=== PATIENT | male | born 1990 | race Caucasian/White ===

== ENCOUNTER 2017-12-26 22:44 | Inpatient (IN) | payer MEDICAID, OTHER ==
[2017-12-26 23:15] VITALS: BMI 17.3
--- NOTE | 2017-12-27 00:04 | C.PDOC ---
History Of Present Illness 27 year old male presents to the ER stating he feels depressed and has been having suicidal thoughts. Patient admits to using heroin and cocaine chronically. Patient states he took "extra" heroin yesterday in an attempt to overdose, which is how he plans on committing suicide. Denies physical complaints at this time. Time Seen by Provider: 12/26/17 23:18 Chief Complaint (Nursing): Psychiatric Evaluation History Per: Patient History/Exam Limitations: no limitations Onset/Duration Of Symptoms: Days Current Symptoms Are (Timing): Still Present Suicide/Self Injury Attempted (Context): None Modifying Factor(s): Narcotics Associated Symptoms: Depression, Suicidal Thoughts, Suicidal Plan Involuntary Hold By: None Recent travel outside of the [place]: No Past Medical History Reviewed: Historical Data, Nursing Documentation, Vital Signs Vital Signs: Last Vital Signs Temp 98.2 F 12/27/17 06:00 Pulse 64 12/27/17 06:00 Resp 14 12/27/17 06:00 BP 109/60 12/27/17 06:00 Pulse Ox 97 12/27/17 06:00 - Medical History PMH: Anemia, Anxiety, Depression Family History: States: Unknown Family Hx - Social History Hx Alcohol Use: No Hx Substance Use: Yes - Immunization History Hx Tetanus Toxoid Vaccination: Yes (2018) Hx Influenza Vaccination: No Hx Pneumococcal Vaccination: No Review Of Systems Except As Marked, All Systems Reviewed And Found Negative. Psych: Positive for: Depression, Suicidal ideation Physical Exam - Physical Exam Appears: Non-toxic, Other (Flat affect) Skin: Normal Color, Warm, Dry Head: Atraumatic, Normacephalic Eye(s): bilateral: Normal Inspection Oral Mucosa: Moist Chest: Symmetrical, No Tenderness Cardiovascular: Rhythm Regular Respiratory: Normal Breath Sounds, No Rales, No Rhonchi, No Wheezing Gastrointestinal/Abdominal: Soft, No Tenderness Neurological/Psych: Oriented x3, Normal Speech ED Course And Treatment - Laboratory Results Result Diagrams: 12/27/17 00:32 12/27/17 00:32 O2 Sat by Pulse Oximetry: 97 (Room air) Pulse Ox Interpretation: Normal Progress Note: Blood work, UA, UDS ordered and reviewed. 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 Disposition - Disposition Disposition Time: 07:00 Condition: STABLE Forms: [facility] (Sudanese) Print Language: FRENCH - Clinical Impression Clinical Impression: Depression - Scribe Statement The provider has reviewed the documentation as recorded by the Scribe Chandler Huynh All medical record entries made by the Scribe were at my direction and personally dictated by me. I have reviewed the chart and agree that the record accurately reflects my personal performance of the history, physical exam, medical decision making, and the department course for this patient. I have also personally directed, reviewed, and agree with the discharge instructions and disposition. Physician Patient Turnover Patient Signed Over To: Lorraine Whaley Handoff Comments: pending psych bed
[2017-12-27 00:39] LABS: BASO % 0.4 % (0.0-2.0); EOS # 0.2 K/uL (0.0-0.7); EOS % 2.5 % (0.0-4.0); HEMOGLOBIN 12.6 g/dL (12.0-18.0); LYMPH # 2.4 K/uL (1.0-4.3); MEAN CELL VOLUME 81.1 fL (80.0-94.0); MEAN CORPUSCULAR HEMOGLOBIN 27.6 pg (27.0-31.0); MEAN CORPUSCULAR HGB CONC 34.1 g/dL (33.0-37.0); MEAN PLATELET VOLUME 8.9 fL (7.2-11.7); MONO # 0.6 K/uL (0.0-0.8); MONO % 7.1 % (0.0-10.0); NEUT # 5.6 K/uL (1.8-7.0); RBC 4.55 Mil/uL (4.40-5.90); RED CELL DISTRIBUTION WIDTH 14.3 % (11.5-14.5); WHITE BLOOD COUNT 8.8 K/uL (4.8-10.8)
[2017-12-27 00:43] LABS: URINE BILIRUBIN NEGATIVE (NEGATIVE); URINE BLOOD NEGATIVE (NEGATIVE); URINE CLARITY Clear (Clear); URINE COLOR Yellow (YELLOW); URINE GLUCOSE (UA) NORMAL (Normal); URINE LEUKOCYTE ESTERASE NEG Leu/uL (Negative); URINE PROTEIN 1+ mg/dL (NEGATIVE)
[2017-12-27 01:00] LABS: ALBUMIN 3.9 g/dL (3.5-5.0); ALT/SGPT 19 U/L (21-72); AST/SGOT 30 U/L (17-59); BLOOD UREA NITROGEN 16 mg/dL (9-20); CALCIUM 8.4 mg/dl (8.6-10.4); GFR AFRICAN-AMERICAN > 60; GFR NON-AFRICAN AMERICAN > 60
[2017-12-27 01:10] LABS: BARBITURATES, UR NEGATIVE (NEGATIVE); BENZODIAZEPINES, UR NEGATIVE (NEGATIVE); PHENCYCLIDINE, UR NEGATIVE (NEGATIVE)
[2017-12-27 01:33] LABS: OPIATES, UR POSITIVE (NEGATIVE)
[2017-12-27] MEDS ORDERED: Aluminum Hydroxide/Magnesium Hydroxide Susp (30 mL) PO PRN (11:26)
--- NOTE | 2017-12-27 11:57 | PCM.BM ---
<Giulia Jorgensen - Last Filed: 12/27/17 11:55> Treatment Plan Problems - Problems identified on initial assessmt Depression Date Initiated: 12/27/17 Time Initiated: 11:56 Assessment reference: NA Status: Active Suicidal Ideation Date Initiated: 12/27/17 Time Initiated: 11:56 Assessment reference: NA Status: Monitor Treatment assets and liabiliti Patient Assests: adapts well, cooperative - Milieu Protocol Maintain good personal hygiene: daily Encourage regular showers, every shift Remind patient to perform daily oral care, every shift Assist patient to perform ADL's Maintain personal safety: every shift Educate patient to report safety concerns to staff, every shift Monitor environment for contraband/sharps Medication safety: Monitor for expected outcome, potential side effects: every shift, Assess barriers to learning: every shift, Assess readiness for medication education: every shift <Km Nova - Last Filed: 12/27/17 13:26> - Diagnosis (1) Opioid use disorder, severe, dependence Status: Acute Interventions: 12/27/17 13:27 * Assess 7x/week regarding severity of withdrawal * Educate regarding risks, benefits, side effects and alternatives of medications * Use Motivational Interviewing for abstinence * Use CBT for relapse prevention * Medication management for withdrawal symptoms * Encourage medication assisted treatment * (2) Depression Status: Acute Interventions: 12/27/17 13:27 * Assess/adjust medications daily and /or as needed * See patient on an individual basis 7x/week to assess symptoms of depression * Monitor for side effects & effectiveness of medications * <Maria Del Carmen Feliciano - Last Filed: 12/30/17 14:23> Family Contact Family involvement: Patient does not wish Family/SO involvement Family contact: Patient declines to allow family contact at present - Goals for Treatment Patient goals for treatment: "I want to attend a methadone clinic." Discharge/Continuing Care - Education Needs Education Needs: Patient Medication, Patient Coping Skills, Patient Anger Management skills, Patient Aftercare Safety Plan - Discharge Discharge Criteria: Free of Suicidal thoughts, Normal sleep pattern, Ability to care for self, No longer exhibiting s/s of withdrawal, Reduction of target symptoms Discharge to:: With Family - Treatment Team Participation Discussed with Family/SO: No Was Patient/Family/SO present at Treatment Team Meeting: Yes
--- NOTE | 2017-12-27 11:58 | PCM.PSYCH ---
Initial Psychiatric Evaluation - Initial Psychiatric Evaluation Type of Admission: Voluntary Legal Status: Capacity Chief Complaint (in patient's own words): "I was depressed" History of Present Illness and Precipitating Events: The patient is seen, chart reviewed and case discussed. This is a 27-year-old male, single with a girlfriend who is 7 months . The patient lives with his parents in [place]. He is unemployed and sometimes does shoplifting for which she was arrested earlier this year. He reports depressive symptoms; anhedonia, sadness, guilt feelings, poor sleep and appetite as well as low self esteem. He thought about overdosing on heroin but he denies all suicidal ideation or plan currently and he is happy to be here. He is future oriented and contracts for safety. He plans to go there rehabilitation and reunite with his girlfriend who is "supportive" as well as his family.. He does 20 bags of IV heroin since age 21 and also cocaine IV but not every day. Last use was yesterday PM. He smokes 1 pack of cigarettes and occasionally marijuana. He denies all other drugs and alcohol. He was in detox 3 times but never went to rehabilitation. He was in methadone program in [facility] in 2017 and his dose was 100 mg. However, after he was jailed for a month he lost his spot in the methadone program. Past psych history: One aurelia attempt in 2012 by OD on heroin. No psych admission or treatment, however he claims he has been depresed sicne he started drugs. Medical history: Hepatitis C and past history of anemia. He is currently okay Family psych history: Father was an alcoholic. Current Medications: Active Medications Generic Name Dose Route Start Last Admin Trade Name Freq PRN Reason Stop Dose Admin Al Hydrox/Mg Hydrox/Simethicone 30 ml 12/27/17 11:26 Maalox 30 Ml PO TID PRN Indigestion / Heartburn Clonidine HCl 0.1 mg 12/27/17 11:26 Catapres PO Q8 PRN COWS Score More or Equal to 5 Hydroxyzine HCl 50 mg 12/27/17 11:27 Atarax PO Q6H PRN Anxiety Ibuprofen 600 mg 12/27/17 11:27 Motrin Tab PO Q6H PRN Pain, moderate (4-7) Loperamide HCl 2 mg 12/27/17 11:26 Imodium PO Q8 PRN Diarrhea Mirtazapine 15 mg 12/27/17 22:00 Remeron PO HS KRISS Ondansetron HCl 4 mg 12/27/17 11:26 Zofran Tab PO Q8 PRN Nausea/Vomiting Trazodone HCl 50 mg 12/27/17 11:27 Desyrel PO HS PRN Insomnia Past Psychiatric History - Past Psychiatric History Previous Treatment History: None Pertinent Medical Hx (Current Medical&Sleep Prob, Allergies): Allergies Allergy/AdvReac Type Severity Reaction Status Date / Time No Known Allergies Allergy Unverified 12/26/17 23:13 Review of Systems - Neurological Neurological: Other - Psychiatric Psychiatric: Abnormal Sleep Pattern, Anhedonia, Anxiety, Depression, Difficulty Concentrating. absent: Hallucinations, Homicidal Ideation, Mood Swings, Suicidal Ideation Mental Status Examination - Personal Presentation Personal Presentation: Looks stated age (thin and tall) - Affect Affect: Constricted - Motor Activity Motor Activity: Calm - Reliability in Providing Information Reliability in Providing Information: Good - Speech Speech: Organized - Mood Mood: Depressed, Anxious - Formal Thought Process Formal Thought Process: No Impairment - Cognitive Functions Orientation: Person, Place, Situation, Time Sensorium: Alert Attention/Concentration: Attentive Estimate of Intelligence: Average Judgement: Intact, as evidence by: Insight regarding need for hospitalization Memory: Recent intact, as evidence by: Ability to recall events of the day, Remote intact, as evidenced by: Abilit to recall sig. life events - Risk Risk: Withdrawal, Diminished functioning - Strength & Assets Inventory Strength & Assets Inventory: Cooperative - Limitations Limitations: Living alone DSM 5 DX - DSM 5 DSM 5 Diagnosis: Depressive d/o -unspecified Opioid withdrawal opioid use d/o- severe Cocaine use d/o -sever Tobacco use d/o - severe - Recommended/Plan of Treatment Treatment Recommendations and Plan of Treatment: Remeron for depression Taper with methadone Gabapentin for augmentation if needed As needed medications All risks, benefits and alternatives of the meds discussed, and the pt agreed and understood. Attend groups and activities Supportive therapy and psychoeducation [place] for abstinence CBT for relapse prevention Encourage MAT Refer to rehab or IOP, and self-help groups Smoking cessation with [place] Nicotine patch 34 min Projected ELOS: 5-6 days Prognosis: good w treatment Discharge Plan and Discharge Criteria: Rehab No wdw sxs, no severe depressive sxs - Smoking Cessation Smoking Cessation Initiated: Yes
[2017-12-27] MEDS: Bacitracin 500 Units/gm Oint Foilpak UD TOP PRN (17:53)
--- NOTE | 2017-12-28 13:04 | PCM.PYCHPN ---
Psychiatric Progress Note - Psychiatric Progress Note Patient seen today, length of contact: 16 min Patient Chief Complaint: I am feeling depressed.' Problems Identified/Issues Discussed: Patient seen and evaluated, chart reviewed and discussed with the nurse. As per the staff, patient still appears isolated, depressed and withdrawn. Patient still reports depressed mood and reports at times feelings of hopelessness or helplessness. He reports withdrawal symptoms including cramps, back pain and sweating. He denies any auditory or visual hallucinations or any psychotic symptoms. He needs some more time for stabilization. He is compliant with his medications and denies any side effects. Supportive therapy and psychoeducation were given. Medication Change: Yes Medical Record Reviewed: Yes Mental Status Examination - Cognitive Function Orientation: Person, Place, Situation, Time Memory: Intact Attention: WNL Concentration: Poor Association: WNL Fund of Knowledge: Poor - Mood Mood: Depressed, Anxious - Affect Affect: Constricted - Speech Speech: Soft - Formal Thought Process Formal Thought Process: No Impairment - Suicidal Ideation Suicidal Ideation: No - Homicidal Ideation Homicidal Ideation: No Goal/Treatment Plan - Goal/Treatment Plan Need for Continued Stay: Severe depression anxiety, Severe functional impairment Progress Toward Problem(s) and Goals/Treatment Plan: Depressive d/o -unspecified Opioid withdrawal opioid use d/o- severe Cocaine use d/o -sever Tobacco use d/o - severe Remeron for depression Taper with methadone Gabapentin for augmentation if needed As needed medications All risks, benefits and alternatives of the meds discussed, and the pt agreed and understood. Attend groups and activities Supportive therapy and psychoeducation [place] for abstinence CBT for relapse prevention Encourage MAT Refer to rehab or IOP, and self-help groups Smoking cessation with [place] Nicotine patch - Smoking Cessation Smoking Cessation Initiated: No
--- NOTE | 2017-12-29 10:50 | PCM.PYCHPN ---
Psychiatric Progress Note - Psychiatric Progress Note Patient seen today, length of contact: 16 min Patient Chief Complaint: I am feeling depressed.' Problems Identified/Issues Discussed: Patient seen and evaluated, chart reviewed and discussed with the nurse. Patient still reports depressed mood and reports at times feelings of hopelessness or helplessness. He reports withdrawal symptoms including cramps, back pain and sweating. He denies any auditory or visual hallucinations or any psychotic symptoms. As per the staff, patient still appears isolated, depressed and withdrawn. He needs some more time for stabilization. He is compliant with his medications and denies any side effects. Supportive therapy and psychoeducation were given. Medication Change: Yes (methadone taper) Medical Record Reviewed: Yes Mental Status Examination - Cognitive Function Orientation: Person, Place, Situation, Time Memory: Intact Attention: WNL Concentration: Poor Association: WNL Fund of Knowledge: Poor - Mood Mood: Depressed, Anxious - Affect Affect: Constricted - Speech Speech: Soft - Formal Thought Process Formal Thought Process: No Impairment - Suicidal Ideation Suicidal Ideation: No - Homicidal Ideation Homicidal Ideation: No Goal/Treatment Plan - Goal/Treatment Plan Need for Continued Stay: Severe depression anxiety, Severe functional impairment Progress Toward Problem(s) and Goals/Treatment Plan: Depressive d/o -unspecified Opioid withdrawal opioid use d/o- severe Cocaine use d/o -sever Tobacco use d/o - severe Remeron for depression Taper with methadone Gabapentin for augmentation if needed As needed medications All risks, benefits and alternatives of the meds discussed, and the pt agreed and understood. Attend groups and activities Supportive therapy and psychoeducation [place] for abstinence CBT for relapse prevention Encourage MAT Refer to rehab or IOP, and self-help groups Smoking cessation with [place] Nicotine patch
[2017-12-30 06:59] VITALS: O2SAT 98
[2017-12-30] MEDS: Bacitracin 500 Units/gm Oint Foilpak UD TOP PRN (09:03)
[2017-12-30] MEDS ORDERED: Pneumococcal 23-Valent Vaccine IM ONE (10:00)
--- NOTE | 2017-12-30 14:09 | PCM.PYCHPN ---
Psychiatric Progress Note - Psychiatric Progress Note Patient seen today, length of contact: 16 min Patient Chief Complaint: "I feel better" Problems Identified/Issues Discussed: The pt is seen, chart reviewed, case discussed with staff. Patient states he slept okay and is doing okay. Symptoms are improving but needs more time to stabilize. After care discussed, support and psychoeducation given. Medication Change: Yes (methadone taper) Medical Record Reviewed: Yes Mental Status Examination - Cognitive Function Orientation: Person, Place, Situation, Time Memory: Intact Attention: WNL Concentration: Poor Association: WNL Fund of Knowledge: Poor - Mood Mood: Depressed - Affect Affect: Constricted - Speech Speech: Soft - Formal Thought Process Formal Thought Process: No Impairment - Suicidal Ideation Suicidal Ideation: No - Homicidal Ideation Homicidal Ideation: No Goal/Treatment Plan - Goal/Treatment Plan Need for Continued Stay: Severe depression anxiety, Severe functional impairment Progress Toward Problem(s) and Goals/Treatment Plan: Continue Remeron 15mg for depression Taper with methadone Gabapentin for augmentation if needed As needed medications All risks, benefits and alternatives of the meds discussed, and the pt agreed and understood. Attend groups and activities Supportive therapy and psychoeducation [place] for abstinence CBT for relapse prevention Encourage MAT Refer to rehab or IOP, and self-help groups Smoking cessation with [place] Nicotine patch
--- NOTE | 2017-12-31 14:42 | PCM.PYCHPN ---
Psychiatric Progress Note - Psychiatric Progress Note Patient seen today, length of contact: 16 min Patient Chief Complaint: "I am doing better." Problems Identified/Issues Discussed: The pt is seen, chart reviewed, case discussed with staff. Patient states he is doing okay. He states he slept well. Symptoms are improving but needs more time to stabilize. After care discussed, support and psychoeducation given. Medication Change: Yes (methadone taper) Medical Record Reviewed: Yes Mental Status Examination - Cognitive Function Orientation: Person, Place, Situation, Time Memory: Intact Attention: WNL Concentration: Poor Association: WNL Fund of Knowledge: Poor - Mood Mood: Neutral - Affect Affect: Constricted - Speech Speech: Soft - Formal Thought Process Formal Thought Process: No Impairment - Suicidal Ideation Suicidal Ideation: No - Homicidal Ideation Homicidal Ideation: No Goal/Treatment Plan - Goal/Treatment Plan Need for Continued Stay: Severe depression anxiety, Severe functional impairment Progress Toward Problem(s) and Goals/Treatment Plan: Continue Remeron 15mg for depression Continue Taper with methadone Gabapentin for augmentation if needed As needed medications All risks, benefits and alternatives of the meds discussed, and the pt agreed and understood. Attend groups and activities Supportive therapy and psychoeducation [place] for abstinence CBT for relapse prevention Encourage MAT Refer to rehab or IOP, and self-help groups Smoking cessation with [place] Nicotine patch
[2018-01-01 05:55] VITALS: BP 111/61; PULSE 67; RESP 19; TEMP 98.1
--- NOTE | 2018-01-01 09:58 | PCM.PYCHDC ---
Mental Status Examination - Mental Status Examination Orientation: Person Memory: Intact Mood: Neutral Affect: Broad Speech: Appropriate Attention: WNL Concentration: WNL Association: WNL Fund of Knowledge: WNL Formal Thought Process: No Impairment Suicidal Ideation: No Current Homicidal Ideation?: No Discharge Summary - Discharge Note Reason for Hospitalization: Depression and opioid use disorder detox Consultations:: List each consultation separately and include: 1. Reason for request. 2. Findings. 3. Follow-up Summary of Hospital Course include:: 1. Description of specific treatment plan utilized for patients during their course of treatmen. 2. Summarize the time- course for resolution of acute symptoms and/or regressed behaviors. 3. Describe issues identified and worked on during hospitalization. 4. Describe medication utilized. 5. Describe medical problems identified and treated. 6. Reassessment of suicide risk Summary of Hospital Course: Admission Summary: The patient is seen, chart reviewed and case discussed. This is a 27-year-old male, single with a girlfriend who is 7 months . The patient lives with his parents in [place]. He is unemployed and sometimes does shoplifting for which she was arrested earlier this year. He reports depressive symptoms; anhedonia, sadness, guilt feelings, poor sleep and appetite as well as low self esteem. He thought about overdosing on heroin but he denies all suicidal ideation or plan currently and he is happy to be here. He is future oriented and contracts for safety. He plans to go there rehabilitation and reunite with his girlfriend who is "supportive" as well as his family.. He does 20 bags of IV heroin since age 21 and also cocaine IV but not every day. Last use was yesterday PM. He smokes 1 pack of cigarettes and occasionally marijuana. He denies all other drugs and alcohol. He was in detox 3 times but never went to rehabilitation. He was in methadone program in [facility] in 2017 and his dose was 100 mg. However, after he was jailed for a month he lost his spot in the methadone program. Past psych history: One aurelia attempt in 2012 by OD on heroin. No psych admission or treatment, however he claims he has been depresed sicne he started drugs. Medical history: Hepatitis C and past history of anemia. He is currently okay Family psych history: Father was an alcoholic. Hospital course: The pt was admitted and started on treatment with psychotherapy, support, psychoeducation and medications, including Methadone taper, Neurontin 100mg TID , Clonidien 0.1mg Q8 PRN, Atarax 50mg Q6 PRN, Remeron 15mg HS, and Trazodone 50mg HS PRN. [place] and CBT used. The pt attended groups and activities, as well as milieu therapy. All the risks and benefits of medications are discussed and the patient understood and agreed. The pt improved with the treatments provided. After care discussed with the patient. He will go to [facility] - Diagnosis (1) Opioid use disorder, severe, dependence Status: Acute (2) Depression Status: Acute - Final Diagnosis (DSM 5) Condition upon Discharge: GOOD DSM 5: Depressive disorder, unspecified Opioid withdrawal Opioid Use Disorder, severe Cocaine Use Disorder, severe Tobacco Use Disorder, severe Disposition: HOME/ ROUTINE Follow-up Treatment Plan: Continue below medications after discharge. Follow after care plan as discussed. Use relapse prevention skills Return to ER or call 911 if suicidal, homicidal or symptoms relapse. Stay away from stress, alcohol and drugs. See primary doctor regularly and get labs. Prescriptions/Medication Reconciliation: Gabapentin [Neurontin] 100 mg PO TID #90 cap Mirtazapine [Remeron] 15 mg PO HS #30 tab
== END 2018-01-01 11:20 | disposition home or self-care (01) | DRG 897 ==
LOC: C.ER 22:44 → C.9E 12-27 09:10 → C.5E 12-27 11:06
PROVIDERS: ADMIT Psychiatry & Neurology Psychiatry; ATTEND Psychiatry & Neurology Psychiatry
PROC: HZ2ZZZZ Detoxification Services for Substance Abuse Treatment (ICD-10-PCS; principal; 2017-12-27)
DX: F11.23 Opioid dependence with withdrawal (principal); R45.851 Suicidal ideations; Z68.1 Body mass index [BMI] 19.9 or less, adult; F12.90 Cannabis use, unspecified, uncomplicated; F17.210 Nicotine dependence, cigarettes, uncomplicated; F32.9 Major depressive disorder, single episode, unspecified; F14.10 Cocaine abuse, uncomplicated

== ENCOUNTER 2018-06-30 20:45 | Emergency (ER) | payer MEDICAID ==
[2018-06-30 20:46] VITALS: BMI 17.3
[2018-06-30 23:13] LABS: BASO % 0.5 % (0.0-2.0); EOS # 0.2 K/uL (0.0-0.7); EOS % 2.2 % (0.0-4.0); HEMOGLOBIN 12.4 g/dL (12.0-18.0); LYMPH # 2.8 K/uL (1.0-4.3); LYMPH % 28.6 % (20.0-40.0); MEAN CELL VOLUME 84.8 fL (80.0-94.0); MEAN CORPUSCULAR HEMOGLOBIN 28.9 pg (27.0-31.0); MEAN CORPUSCULAR HGB CONC 34.1 g/dL (33.0-37.0); MEAN PLATELET VOLUME 9.3 fL (7.2-11.7); MONO # 0.9 K/uL (0.0-0.8); MONO % 9.1 % (0.0-10.0); NEUT # 5.9 K/uL (1.8-7.0); NEUT % 59.6 % (50.0-75.0); RBC 4.29 Mil/uL (4.40-5.90); RED CELL DISTRIBUTION WIDTH 14.1 % (11.5-14.5); WHITE BLOOD COUNT 9.9 K/uL (4.8-10.8)
[2018-06-30 23:16] LABS: URINE BILIRUBIN NEGATIVE (NEGATIVE); URINE BLOOD NEGATIVE (NEGATIVE); URINE CLARITY Clear (Clear); URINE COLOR Yellow (YELLOW); URINE GLUCOSE (UA) NORMAL (Normal); URINE LEUKOCYTE ESTERASE NEG Leu/uL (Negative); URINE PROTEIN NEGATIVE (NEGATIVE); URINE UROBILINOGEN NORMAL mg/dL (0.2-1.0)
[2018-06-30 23:29] LABS: ALB/GLOB RATIO 1.3 (1.0-2.1); ALBUMIN 3.9 g/dL (3.5-5.0); ALT/SGPT 33 U/L (21-72); AST/SGOT 20 U/L (17-59); BLOOD UREA NITROGEN 13 mg/dL (9-20); CALCIUM 8.8 mg/dl (8.6-10.4); GFR NON-AFRICAN AMERICAN > 60
[2018-06-30 23:32] LABS: BARBITURATES, UR NEGATIVE (NEGATIVE); BENZODIAZEPINES, UR NEGATIVE (NEGATIVE); PHENCYCLIDINE, UR NEGATIVE (NEGATIVE)
--- NOTE | 2018-06-30 23:59 | C.PDOC ---
History Of Present Illness 28 year old male presents to the ED for evaluation of feeling depressed and having SI. Patient reports taking new psych medications the last couple of weeks. Patient denies HI, hallucinations, other medical complaints. <Clay Ann - Last Filed: 07/01/18 00:31> History Per: Patient History/Exam Limitations: no limitations Onset/Duration Of Symptoms: Days Current Symptoms Are (Timing): Still Present Suicide/Self Injury Attempted (Context): None Associated Symptoms: Depression, Suicidal Thoughts. denies: Suicidal Plan Involuntary Hold By: None Recent travel outside of the [place]: No Additional History Per: Patient <Clay Ann - Last Filed: 07/01/18 00:31> <Nam White - Last Filed: 07/01/18 01:18> Time Seen by Provider: 06/30/18 22:59 Chief Complaint (Nursing): Psychiatric Evaluation Past Medical History Reviewed: Historical Data, Nursing Documentation, Vital Signs Vital Signs: Last Vital Signs Temp 98.8 F 06/30/18 21:50 Pulse 89 06/30/18 21:50 Resp 16 06/30/18 21:50 BP 124/78 06/30/18 21:50 Pulse Ox 100 06/30/18 21:50 - Medical History PMH: Anemia, Anxiety, Depression Denies: Diabetes, Hepatitis, HIV, HTN, Seizures, Sexually Transmitted Disease Surgical History: No Surg Hx - [facility] DETOXIFICATION SERVICES FOR SUBSTANCE ABUSE TREATMENT (12/27/17) Family History: States: Unknown Family Hx - Social History Hx Alcohol Use: No Hx Substance Use: Yes - Immunization History Hx Tetanus Toxoid Vaccination: Yes (2017) Hx Influenza Vaccination: No Hx Pneumococcal Vaccination: Yes <Clay Ann - Last Filed: 07/01/18 00:31> Vital Signs: Last Vital Signs Temp 98.8 F 06/30/18 21:50 Pulse 89 06/30/18 21:50 Resp 16 06/30/18 21:50 BP 124/78 06/30/18 21:50 Pulse Ox 100 07/01/18 00:33 - [facility] DETOXIFICATION SERVICES FOR SUBSTANCE ABUSE TREATMENT (12/27/17) <Nam White - Last Filed: 07/01/18 01:18> Review Of Systems Constitutional: Negative for: Fever, Chills Cardiovascular: Negative for: Chest Pain Respiratory: Negative for: Shortness of Breath Gastrointestinal: Negative for: Nausea, Vomiting Skin: Negative for: Rash Psych: Positive for: Depression, Suicidal ideation <Clay Ann - Last Filed: 07/01/18 00:31> Physical Exam - Physical Exam Appears: Non-toxic, No Acute Distress, Other (flat affect) Skin: Normal Color, Warm, Dry Head: Atraumatic, Normacephalic Eye(s): bilateral: Normal Inspection Neck: Normal ROM, Supple Chest: Symmetrical Cardiovascular: Rhythm Regular Respiratory: Normal Breath Sounds, No Rales, No Rhonchi, No Wheezing Gastrointestinal/Abdominal: Soft, No Tenderness, No Guarding, No Rebound Extremity: Normal ROM, No Tenderness, No Swelling Neurological/Psych: Oriented x3, Normal Speech, Normal Cognition Gait: Steady <Clay Ann E Last Filed: 07/01/18 00:31> ED Course And Treatment - Laboratory Results Result Diagrams: 06/30/18 23:08 06/30/18 23:08 O2 Sat by Pulse Oximetry: 100 (ON RA) Pulse Ox Interpretation: Normal <Clay Ann E Last Filed: 07/01/18 00:31> - Laboratory Results Result Diagrams: 06/30/18 23:08 06/30/18 23:08 Pulse Ox Interpretation: Normal Progress Note: pt was cleared for discharge by dr ramirez. Information for detox was given as well as follow up at [facility] <Nam White - Last Filed: 07/01/18 01:18> Medical Decision Making Medical Decision Making: Plan: * Labs * UA * Crisis eval * 1:1 Obs * * 0100: signed over to overnight MD. pt sleeping. NAD * <Clay Ann E Last Filed: 07/01/18 00:31> Disposition - Disposition Disposition Time: 01:00 <Clay Ann Bibi Filed: 07/01/18 00:31> Counseled Patient/Family Regarding: Studies Performed, Diagnosis, Need For Followup <Nam White - Last Filed: 07/01/18 01:18> - Disposition Disposition: HOME/ ROUTINE Condition: FAIR Instructions: Polysubstance Abuse (DC) Forms: [employer] (Yakut) - Clinical Impression Clinical Impression: Opioid use disorder, Cocaine use disorder - Scribe Statement The provider has reviewed the documentation as recorded by the Scribe Pieter العلي All medical record entries made by the Scribe were at my direction and personally dictated by me. I have reviewed the chart and agree that the record accurately reflects my personal performance of the history, physical exam, medical decision making, and the department course for this patient. I have also personally directed, reviewed, and agree with the discharge instructions and disposition. <Clay Ann E - Last Filed: 07/01/18 00:31> Physician Patient Turnover Patient Signed Over To: Nam White Handoff Comments: dispo per Crisis Eval <Clay Ann - Last Filed: 07/01/18 00:31>
[2018-07-01 00:04] LABS: OPIATES, UR POSITIVE (NEGATIVE)
--- NOTE | 2018-07-01 00:31 | C.PDOC ---
Time Seen by Provider: 06/30/18 22:59 Chief Complaint (Nursing): Psychiatric Evaluation Past Medical History Vital Signs: Last Vital Signs Temp 98.8 F 06/30/18 21:50 Pulse 89 06/30/18 21:50 Resp 16 06/30/18 21:50 BP 124/78 06/30/18 21:50 Pulse Ox 100 06/30/18 21:50 - Medical History PMH: Anemia, Anxiety, Depression Denies: Diabetes, Hepatitis, HIV, HTN, Seizures, Sexually Transmitted Disease - [facility] DETOXIFICATION SERVICES FOR SUBSTANCE ABUSE TREATMENT (12/27/17) Family History: States: Unknown Family Hx - Social History Hx Alcohol Use: No Hx Substance Use: Yes - Immunization History Hx Tetanus Toxoid Vaccination: Yes (2016) Hx Influenza Vaccination: No Hx Pneumococcal Vaccination: Yes ED Course And Treatment - Laboratory Results Result Diagrams: 06/30/18 23:08 06/30/18 23:08 O2 Sat by Pulse Oximetry: 100 Disposition - Disposition
[2018-07-01 01:23] VITALS: BP 116/69; PULSE 78; RESP 18; TEMP 98; O2SAT 98
== END 2018-07-01 01:23 | disposition home or self-care (01) ==
LOC: C.ER 20:45
DX: F11.10 Opioid abuse, uncomplicated (principal); F14.10 Cocaine abuse, uncomplicated

== ENCOUNTER 2018-07-28 09:24 | Emergency (ER) | payer MEDICAID ==
[2018-07-28 09:24] VITALS: BMI 17.3
[2018-07-28 09:45] VITALS: BP 145/75; PULSE 91; RESP 20; TEMP 98.5; O2SAT 99
== END 2018-07-28 09:40 | disposition left against medical advice (07) ==
LOC: C.ER 09:24
DX: Z02.89 Encounter for other administrative examinations (principal); Z00.00 Encounter for general adult medical examination without abnormal findings